=== PATIENT | female | born 1980 | race Caucasian/White ===

== ENCOUNTER 2016-11-07 22:44 | Emergency (ER) | payer OTHER ==
[2016-11-08 00:45] VITALS: BP 162/92
== END 2016-11-08 00:45 | disposition home or self-care (01) ==
LOC: ED 22:44
DX: M54.9 Dorsalgia, unspecified (principal); R73.9 Hyperglycemia, unspecified; I10 Essential (primary) hypertension; J45.909 Unspecified asthma, uncomplicated

== ENCOUNTER 2017-01-24 19:55 | Emergency (ER) | payer OTHER ==
[2017-01-25 00:02] VITALS: BP 130/65
== END 2017-01-25 00:02 | disposition home or self-care (01) ==
LOC: ED 19:55
DX: S86.912A Strain of unspecified muscle(s) and tendon(s) at lower leg level, left leg, initial encounter (principal); I10 Essential (primary) hypertension; J45.909 Unspecified asthma, uncomplicated; Z79.82 Long term (current) use of aspirin; Z79.899 Other long term (current) drug therapy; X37.1XXA Tornado, initial encounter; Y93.89 Activity, other specified; Y92.89 Other specified places as the place of occurrence of the external cause; Y99.8 Other external cause status
CPT/HCPCS: J1885